=== PATIENT | male | born 1985 | race Two or more races ===

== ENCOUNTER 2018-11-03 13:12 | Outpatient (CLI) | payer OTHER | END 2018-11-03 13:18 | disposition home or self-care (01) | LOC: RAD 501 13:12 | DX: I10 Essential (primary) hypertension (principal); M54.5 Low back pain; Z01.810 Encounter for preprocedural cardiovascular examination; E03.8 Other specified hypothyroidism; E78.9 Disorder of lipoprotein metabolism, unspecified; E11.51 Type 2 diabetes mellitus with diabetic peripheral angiopathy without gangrene; E55.9 Vitamin D deficiency, unspecified; E11.9 Type 2 diabetes mellitus without complications; E66.8 Other obesity; G62.89 Other specified polyneuropathies ==

== ENCOUNTER 2023-03-11 08:28 | Outpatient (CLI) | payer OTHER | END 2023-03-11 08:34 | disposition home or self-care (01) | LOC: SONOGRAMA 08:28 | PROVIDERS: ATTEND Internal Medicine Gastroenterology | DX: R10.11 Right upper quadrant pain (principal) ==